=== PATIENT | female | born 1990 | race Two or more races ===

== ENCOUNTER 2017-03-18 20:35 | Emergency (ER) | payer BC ==
[2017-03-18 20:35] VITALS: BMI 23.6
[2017-03-18 20:39] VITALS: BP 141/79; PULSE 79; RESP 16; TEMP 98.5; O2SAT 99
--- NOTE | 2017-03-18 21:19 | ED PDOC ---
HPI: General Adult Time Seen by Provider: 03/18/17 20:42 Chief Complaint (Nursing): Abnormal Skin Integrity Chief Complaint (Provider): Left Knee Injury History Per: Patient History/Exam Limitations: no limitations Current Symptoms Are (Timing): Still Present Additional Complaint(s): 20:42 Julia Myers is a 26 year old female that presents to the ED with a left leg injury she sustained shortly [employer]. Patient reports that she tripped while she was walking and sustained a laceration to her left knee and abrasions to her right knee. She has full ROM to the knee, denies any swelling, numbness, or tingling to the knee. She was able to walk to ED. Tetanus UTD. Patient is not intoxicated. Past Medical History Reviewed: Historical Data, Nursing Documentation, Vital Signs Vital Signs: Last Vital Signs Temp 98.5 F 03/18/17 20:37 Pulse 79 03/18/17 20:37 Resp 16 03/18/17 20:37 BP 141/79 03/18/17 20:37 Pulse Ox 99 03/18/17 21:27 - Surgical History Surgical History: Tonsillectomy (AT AGE 14YRS) - Family History Family History: States: Unknown Family Hx - Immunization History Hx Tetanus Toxoid Vaccination: Yes - Home Medications Home Medications: Ambulatory Orders Medication Instructions Recorded Loratadine [Claritin] 10 mg PO DAILY PRN 03/19/16 Cephalexin [cephalexin] 500 mg PO BID #20 cap 03/18/17 - Allergies Allergies/Adverse Reactions: Allergies Allergy/AdvReac Type Severity Reaction Status Date / Time NORBERTO AdvReac ITCHING Uncoded 03/18/16 14:20 Review of Systems Musculoskeletal: Positive for: Leg Pain (laceration on left knee) Neurological: Negative for: Numbness Physical Exam - Reviewed Nursing Documentation Reviewed: Yes Vital Signs Reviewed: Yes - Physical Exam Appears: Positive for: Non-toxic, No Acute Distress Head Exam: Positive for: ATRAUMATIC, NORMOCEPHALIC Skin: Positive for: Normal Color, Warm Extremity: Positive for: Normal ROM (full ROM of knees bilaterally), Other ( Left knee had 8 cm, lunar-shaped laceration, flap, partial thickness, active bleeding. Right knee only sustained minor abrasions. ). Negative for: Swelling Neurologic/Psych: Positive for: Alert, Oriented - ECG O2 Sat by Pulse Oximetry: 99 (RA) Pulse Ox Interpretation: Normal Medical Decision Making Medical Decision Makin:00 Impression: Left Knee Laceration Plan: * Laceration Repair of Left Knee Laceration 21:20 * Patient tolerated procedure well, with no immediate complications. Patient will be placed in knee mobilizer and given Rx for antibiotics. Patient advised not to wet wound, and told to return in 10-12 days for suture removal. Scribe Attestation: Documented by Mirta Briggs, acting as a scribe for Maria Antonia Butt PA-C. Provider Scribe Attestation: All medical record entries made by the Scribe were at my direction and personally dictated by me. I have reviewed the chart and agree that the record accurately reflects my personal performance of the history, physical exam, medical decision making, and the department course for this patient. I have also personally directed, reviewed, and agree with the discharge instructions and disposition. Procedures - Laceration/Wound Repair Left Knee Wound Length (cm): 8 (lunar-shaped) Wound's Depth, Shape: flap Betadine Prep?: Yes (wound cleaned with NS betadine) Anesthesia: Lidocaine w/ Epi (6 ccs) Suture Size/Type: 3:0, nylon Number of Sutures: 9 (nonabsorbable, simple interrupted) Wound Complexity: Intermediate Disposition - Clinical Impression Clinical Impression: Laceration - Disposition Referrals: [facility] [Outside] [facility] [Outside] Disposition Time: 21:30 Condition: STABLE Additional Instructions: do not wet wound take your antibiotics make sure to keep splint on return to ER or your doctor in 10-12 days for wound check/suture removal. Prescriptions: Cephalexin [cephalexin] 500 mg PO BID #20 cap Instructions: Care For Your Stitches (ED), Laceration (ED) Forms: [employer] ([place])
== END 2017-03-18 21:48 | disposition home or self-care (01) ==
LOC: H.ER 20:35
DX: S81.012A Laceration without foreign body, left knee, initial encounter (principal); W19.XXXA Unspecified fall, initial encounter; Y92.89 Other specified places as the place of occurrence of the external cause